=== PATIENT | female | born 1990 | race Two or more races ===

== ENCOUNTER 2017-04-23 05:55 | Emergency (ER) | payer OTHER ==
--- NOTE | ~2017-04-23 | CR72 ---
[facility] A Service of [facility] & [facility] RADIOLOGY TEXT RESULTS PATIENT: RONA HERNANDEZ LOCATION: [facility] : 88 UNIT #: [id number] AGE: [address]: Charly Houston MD SEX: F ORDER DR: [id number] [facility] [address] [place], [place] [address] [id number] MR#: [id number] #: [id number] NAME: RONA HERNANDEZ : 1990 SEX: F STUDY DATE/TIME: 04/23/2017 7:41 UNIT: [facility] ROOM: STUDY DESCRIPTION: CR Chest Single View Portable Attending Physician: Charly Houston M.D. Ordering Physician: Charly Houston M.D. MEDICAL IMAGING REPORT This report is preliminary unless electronic signature is present EXAM Frontal chest, 04/23/2017. INDICATIONS Nausea and shortness of air since yesterday. COPD. TECHNIQUE Frontal chest, no comparisons. FINDINGS Cardiac silhouette within normal limits. The vascularity is normal. Lungs are clear and there is no pneumothorax. IMPRESSION 1. Negative frontal chest. We have no comparisons. Dictated by... Дмитрий Arias M.D. THIS IS AN ELECTRONICALLY VERIFIED REPORT Дмитрий Arias M.D. at 04/24/2017 8:44 AM Kendrick TD: 04/23/2017 19:23 JOB #: [id number] MEDICAL IMAGING REPORT Page 1 of 1 COPY
--- NOTE | ~2017-04-23 | EKG ---
PATIENT: RONA HERNANDEZ UNIT #: [id number] Ventricular Rate: 72 BPM Atrial Rate: 72 BPM P-R Interval: 142 ms QRS Duration: 66 ms Q-T Interval: 374 ms QTC Calculation(Bezet): 409 ms P Dodge: 65 degrees Calculated R Dodge: 39 degrees Calculated T Dodge: 38 degrees Diagnosis Line: Normal sinus rhythm Diagnosis Line: Biatrial enlargement Diagnosis Line: Abnormal ECG Diagnosis Line: Diagnosis Line: Confirmed by EMANUEL ROMAN MD ([id number]) on Diagnosis Line: 04/25/2017 11:05:03 AM INTERPRETING MD: JESSIE COLLIER
[2017-04-23 07:40] LABS: POC - CKMB 1.3 ng/mL (0.0-7.9); POC - TROPONIN <0.05 ng/mL (<=0.05)
[2017-04-23 07:44] LABS: BASOPHIL# 0.1 X10e3 (0-0.3); BASOPHIL% 0.8 % (0-2.5); EOSINOPHIL# 0.3 X10e3 (0-0.7); EOSINOPHIL% 3.8 % (0.0-7.0); HEMATOCRIT 40.4 % (35.0-45.0); HEMOGLOBIN 13.1 gm/dL (12.0-16.0); LYMPHOCYTE# 3.3 X10e3 (1.0-3.5); LYMPHOCYTE% 48.1 % (17.0-45.0); MEAN CELL VOLUME 88.2 FL (83-96); MEAN CORPUSCULAR HEMOGLOBIN 28.6 PG (28-34); MEAN CORPUSCULAR HGB CONC 32.5 g/dL (30-36); MEAN PLATELET VOLUME 10.1 FL (6.5-11.5); MONOCYTE# 0.7 X10e3 (0-1.0); MONOCYTE% 9.7 % (3.0-12.0); NEUTROPHIL# 2.6 X10e3 (1.5-7.1); NEUTROPHIL% 37.6 % (40-75); PLATELET COUNT 240 X10e3 (140-420); RED BLOOD COUNT 4.58 X10e (3.90-5.30); RED CELL DISTRIBUTION WIDTH 13.2 % (11.0-15.5); WHITE BLOOD COUNT 6.8 X10e3 (4.0-10.5)
[2017-04-23 07:54] LABS: PARTIAL THROMBOPLASTIN TIME 31.3 SECONDS (23.5-31.3); PROTHROMBIN TIME (PATIENT) 10.7 SECONDS (10.0-11.7)
[2017-04-23 08:19] LABS: DIFF IND NO
[2017-04-23 08:27] LABS: ALBUMIN SERUM 4.5 g/dL (3.5-5.0); ALKALINE PHOSPHATASE 73 U/L (32-92); ALT (SGPT) 17 U/L (10-40); AST (SGOT) 22 U/L (10-42); BILIRUBIN,TOTAL 0.5 mg/dL (0.2-2.0); BLOOD UREA NITROGEN 10 mg/dL (9-23); BUN/CREATININE RATIO 16.66; CALCIUM SERUM 9.5 mg/dL (8.4-10.2); CARBON DIOXIDE 25 mmol/L (22-31); CHLORIDE 103 mmol/L (100-111); CREATININE SERUM 0.6 mg/dL (0.6-1.4); GLOM FILT RATE Estimated 124.9 mL/min (>60); GLUCOSE FASTING 99 mg/dL (70-110); POTASSIUM 3.6 mmol/L (3.5-5.1); PROTEIN TOTAL SERUM 8.1 g/dL (6.0-8.3); SODIUM 138 mmol/L (135-145)
[2017-04-23 08:28] LABS: BILIRUBIN, DIRECT <0.1 mg/dL (0.0-0.2); BILIRUBIN,INDIRECT 0.4 mg/dL (0.0-0.9)
== END 2017-04-23 09:32 | disposition home or self-care (01) ==
LOC: CED 05:55
PROVIDERS: Emergency Medicine
DX: R06.02 Shortness of breath (principal)
CPT/HCPCS: 36415; 71010; 80048; 80076; 82553; 84484; 84703; 85025; 85379; 85610; 85730; 93005; 99285